=== PATIENT | male | born 1990 | race Caucasian/White ===

== ENCOUNTER 2023-11-21 01:05 | Day surgery (SDC) | payer BC, SELFPAY ==
[2023-11-17 16:12] VITALS: BMI 25.7
[2023-11-21 11:16] VITALS: BP 134/82; PULSE 72; RESP 16; TEMP 36.4; O2SAT 100
[2023-11-21] MEDS: LACTATED RINGERS 1,000 ML 150 ML IV CONT (11:36)
--- NOTE | 2023-11-21 12:01 | WPDANESEPPF ---
Anes - Initial Pre Proc Eval Procedure: Operation Date: 11/21/23 12:30 Proposed Procedures p Esophagogastroduodenoscopy - Robbi Beatty MD Date/Time: 11/21/23 12:01 Surgeon: Robbi Beatty MD Pre Op Diagnosis: dysphagia Patient Data Age: 33 Gender: M Height: 1.83 m Weight: 86.9 kg Last Vital Signs Temp 36.4 C 11/21/23 11:16 Pulse 72 11/21/23 11:16 Resp 16 11/21/23 11:16 BP 134/82 11/21/23 11:16 Pulse Ox 100 11/21/23 11:16 O2 Del Method Room Air 11/21/23 11:16 Allergies Allergy/AdvReac Type Severity Reaction Status Date / Time No Known Allergies Allergy Verified 11/21/23 11:15 Home Medications Medication Instructions Recorded Confirmed Type No Home Medications 11/17/23 11/17/23 History Patient hx anesthesia problems: none Family hx anesthesia problems: none Results Review: All pre-operative results and documents have been reviewed as part of the pre-operative evaluation. [facility] Past Medical History Medical History Regurgitation of food Surgical History Surgical History (Updated 11/21/23 @ 12:02 by Evan Anaya MD) H/O myringotomy Social History Social History Smoking status: Never smoker Alcohol intake: current Drinks per week: 3 Alcohol use details: DRINKS Substance use: never Substance use type: does not use Living arrangements: with family Spiritual care concerns: No Anes - Eval Final PreProcedure Day of Procedure 11/21/23 12:01 Patient weight: normal Heart: regular rate and rhythm Lungs: clear to auscultation Airway: Mallampati scale class 1 Neurological: alert and oriented Last oral intake: >/= 8 hours ASA classification: I Emergent: no Anesthetic plan: proceed Anesthesia type and monitoring: general GIVS and standard monitoring Results Review: All pre-operative results and documents have been reviewed as part of the pre-operative evaluation. Informed Consent: The patient's anesthetic plan and its attendant risks and benefits were discussed with the patient/family/POA. Questions were solicited and answers provided to the satisfaction of the patient/family/POA.
--- NOTE | 2023-11-21 12:29 | WPDHPUPDATE1 ---
History and Physical Update Update Date/Time: 11/21/23 12:29 History and Physical has been reviewed, including an updated exam of the patient. There are NO changes in the patient's condition. Risks, benefits, and alternatives have been discussed and questions answered. Patient agrees to proceed with procedure.
[2023-11-21 12:48] VITALS: BP 108/72; PULSE 91; RESP 18; O2SAT 99
[2023-11-21 12:58] VITALS: BP 111/78; PULSE 70; RESP 20; O2SAT 98
[2023-11-21 13:08] VITALS: BP 125/89; PULSE 64; RESP 23; O2SAT 100
== END 2023-11-21 13:25 | disposition home or self-care (01) ==
PROVIDERS: Visit Provider Internal Medicine Gastroenterology
PROC: 0DJ08ZZ Inspection of Upper Intestinal Tract, Via Natural or Artificial Opening Endoscopic (ICD-10-PCS; CPT 43235; principal; 2023-11-21 12:30)
DX: K21.00 Gastro-esophageal reflux disease with esophagitis, without bleeding (principal); K29.50 Unspecified chronic gastritis without bleeding; Z79.52 Long term (current) use of systemic steroids
CPT/HCPCS: 43239; 88305; J2003; J2704; J7120